=== PATIENT | male | born 1995 | race Hispanic/Latino ===

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

== ENCOUNTER 2017-04-21 20:13 | Emergency (ER) | payer MEDICAID, OTHER ==
--- NOTE | 2017-04-21 21:08 | ERNOTE ---
ENT HPI Presenting Symptoms: other - sore throat Time Seen by Provider: 04/21/17 20:53 Source: patient Exam Limitations: no limitations - Immun/Allergies/Home Medications Immunizations: IMMUNIZATION HX Immunizations Up to Date Yes History of Influenza Vaccine No Hx Pneumococcal Vaccination No Allergies/Adverse Reactions: Allergies Allergy/AdvReac Type Severity Reaction Status Date / Time No Known Allergies Allergy Verified 12/07/16 18:04 Home Medications: HOME MEDICATIONS Amoxicillin 875 mg PO BID #20 tablet 04/21/17 [Last Taken Unknown] Dextroamphetamine/Amphetamine [Adderall 30 mg Tablet] 30 mg PO DAILY 04/21/17 [ Last Taken Unknown] - History of Present Illness Narrative: Pt states he has had sore throat off and on for 4 days. Severity: Present: mild ENT Location: Present: throat Prearrival Treatment: Present: over the counter meds Associated Symptoms - ENT: Reports: denies symptoms Review of Systems - Review of Systems Constitutional: Absent: fever, chills EYE: Present: no symptoms reported ENT: Present: See HPI Respiratory: Absent: cough Cardiology: Present: no symptoms reported Gastrointestinal/Abdominal: Present: no symptoms reported Skin: Absent: rash Neurological: Present: no symptoms reported Hematologic/Lymphatic: Present: no symptoms reported - Patient's Past Medical History Patient History - Medical: ADHD, Anxiety, Obesity Patient History - Cardiac/Respiratory: No pertinent hx Patient History - Cancer: No Hx of Cancer Patient History - Surgical Procedures: No surgical history Patient History - Other: None - Social History Living Situations: parents Abuse History: No History of abuse Psych History: No pertinent hx Smoking Status: Current every day smoker Have you smoked in the past 12 months: Yes Do you dip or chew tobacco: No Alcohol Use: occasionally Drug Use: none - Immunizations Immunizations Up to Date: Yes Hx Pneumococcal Vaccination: No History of Influenza Vaccine: No Physical Exam - Physical Exam General Appearance: Present: wd/wn, alert, no apparent distress Head Exam: Present: normal inspection, no evidence of injury Ears, Nose, Throat: Present: pharyngeal erythema, tonsillar exudate, tonsillar swelling Neck: Present: lymphadenopathy (L) - upper cervical Respiratory: Present: no respiratory distress, no accessory muscle use Neurological Exam: Present: alert, oriented, normal mood/affect, no motor/ sensory deficits Skin Exam: Present: normal color, warm/dry ED Progress - Results and Orders Patient's Lab Results:: I have reviewed the patient's lab results. Results and Orders: Laboratory Tests 04/21/17 20:51 Group A Strep Rapid Positive H - Vital Signs Patient's Vital Signs:: I have reviewed the patient's vital signs. Vital Signs: Vital Signs 04/21/17 20:42 Temperature 37.1 C Pulse Rate 103 H Respiratory 16 Rate Blood Pressure 126/73 O2 Sat by Pulse 98 Oximetry - Progress/Reassessment Chief Complaint: Sore Throat Departure Clinical Impression: Strep pharyngitis - Departure Disposition: Home self-care Condition: Good Instructions: Strep Throat, [id number] Additional Instructions: drink plenty of fluids, take ibuprofen or tylenol as needed for discomfort. Take antibiotics until gone. Referrals: Jace Mello MD [Primary Care Provider] - Prescriptions: Amoxicillin 875 mg PO BID #20 tablet
[2017-04-21] MEDS ORDERED: AMOXICILLIN TRIHYDRATE 250 MG CAPSULE PO ONE (21:28)
[2017-04-21] MEDS ORDERED: AMOXICILLIN TRIHYDRATE 250 MG CAPSULE ONE (21:30)
[2017-04-21 21:38] VITALS: BP 147/90
== END 2017-04-21 21:37 | disposition home or self-care (01) ==
LOC: ER 20:13
DX: J02.0 Streptococcal pharyngitis (principal); F17.200 Nicotine dependence, unspecified, uncomplicated; F90.9 Attention-deficit hyperactivity disorder, unspecified type